=== PATIENT | female | born 1985 | race Two or more races ===

== ENCOUNTER → 2019-06-23 | Outpatient (CLI) | payer OTHER ==
[~2019-06-23] MED LIST: GADOTERATE 7.5 MMOL/15ML VIAL. IVP ONE
--- NOTE | 2019-06-23 13:39 | RAD ---
LUMBAR SPINE WO/W CONTRAST, CERVICAL SPINE WO/W CONTRAST, THORACIC SPINE WO/W CONTRAST DATE: 06/23/2019 11:15 AM INDICATION: Spina bifida TECHNIQUE: Multiplanar multisequence magnetic resonance imaging of the cervical spine was performed with and without administration of intravenous contrast using the standard cervical spine protocol. 13 cc of Dotarem contrast was administered intravenously during the examination. COMPARISON: None. 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 Mild prominence of the central canal at T7-8 measuring less than 2 mm, not meeting criteria for syrinx. The cervical and thoracic spine are normally aligned. Mild left convex lumbar curvature. No acute fracture. The intervertebral discs are normal. No marrow replacing process to suggest malignancy. On the limited views of the cranial cavity and brain, the cerebellum and yanira have normal morphology and signal characteristics. No Chiari malformation. Normal signal voids are present in the vertebral arteries. Left kidney is not seen. Bladder wall thickening and trabeculation consistent with neurogenic bladder. Partially visualized fluid containing structure low in the pelvis between the bladder and rectum measuring 8.3 x 5.3 cm (TV by AP). Within are 2 round T1/T2 hypointense structures measuring 3.5 and 3.3 cm Cervical: No significant spinal canal stenosis or neural foraminal narrowing. Thoracic: No significant spinal canal stenosis or neural foraminal narrowing. Lumbar: T12-L1: No disc bulge. No facet arthropathy. No significant spinal stenosis or neural foraminal narrowing. L1-L2: No disc bulge. No facet arthropathy. No significant spinal stenosis or neural foraminal narrowing. L2-L3: No disc bulge. No facet arthropathy. No significant spinal stenosis or neural foraminal narrowing. L3-L4: No disc bulge. Mild facet arthropathy. No significant spinal stenosis or neural foraminal narrowing. L4-L5: No disc bulge. Mild facet arthropathy. No significant spinal stenosis or neural foraminal narrowing. L5-S1: No disc bulge. Mild facet arthropathy. No significant spinal stenosis or neural foraminal narrowing. IMPRESSION: 1. 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 2. Partially visualized 8.3 cm midline fluid containing structure between the bladder and rectum, likely the uterus and potentially representing hydrometrocolpos. Rounded structures layering dependently within may represent chronic blood products or calcifications. Consider pelvic ultrasound to assess for associated Mullerian malformations, if not performed previously. 3. Left kidney is not seen and may be congenitally absent, as urological tract malformations are commonly associated with Mullerian malformations. 4. Neurogenic bladder. Electronically signed by: Scooter De Luna MD (06/23/2019 1:37 PM) [id number]
== END | disposition home or self-care (01) ==
LOC: MRI 09:36
PROVIDERS: ATTEND Family Medicine
DX: M47.816 Spondylosis without myelopathy or radiculopathy, lumbar region (principal); Q76.49 Other congenital malformations of spine, not associated with scoliosis; N31.9 Neuromuscular dysfunction of bladder, unspecified; D17.79 Benign lipomatous neoplasm of other sites
CPT/HCPCS: 72156; 72157; 72158; A9575